=== PATIENT | male | born 1955 | race Caucasian/White ===

== ENCOUNTER 2021-12-26 15:16 | Emergency (ER) | payer MEDICARE, SELFPAY ==
--- NOTE | 2021-12-26 15:17 | ED.SKABFB ---
HPI - Skin/Abscess/Foreign Bdy General Chief complaint: Skin/Abscess/Foreign Body Stated complaint: Skin Sore Time Seen by Provider: 12/26/21 15:18 Source: patient and RN notes reviewed History of Present Illness HPI narrative: Patient is 66-year-old male who presents the urgent care with complaints of possible abscesses to the back. Patient states he noticed him over the last week or so and has been cleaning them with alcohol. Denies of any fever, chills, nausea or vomiting. No other acute complaints. No acute distress noted. Patient read the plan of care. Some parts of this dictation were generated by voice recognition software and may contain typographical and/or grammatical inaccuracies. Related Data Allergies Allergy/AdvReac Type Severity Reaction Status Date / Time No Known Allergies Allergy Verified 12/26/21 15:33 Review of Systems Review of Systems: CONSTITUTIONAL: Denies fever, chills, or sweats. EYES: Denies visual changes, redness, or discharge. ENT: Denies rhinorrhea, congestion, sore throat, or otalgia. CARDIOVASCULAR: Denies chest pain, palpitations, or edema. RESPIRATORY: Denies cough or dyspnea. GASTROINTESTINAL: Denies abdominal pain, nausea, vomiting, or diarrhea. GENITOURINARY: Denies dysuria or hematuria. SKIN: Reports of possible abscesses to the lower back MUSCULOSKELETAL: Denies back pain, joint pain, or myalgia. NEUROLOGIC: Denies headache, numbness, or weakness. All other systems reviewed are negative, except as documented in HPI. PMFSH Comments At the time of my signature, I reviewed and agree with the nursing past medical, surgical, social, and family history. There is no relevant family history pertinent to the patient complaint. Exam Narrative: GENERAL: This is a well-nourished, well-developed patient, in no apparent distress. HEAD: normocephalic, atraumatic. EYES: PERRL. Sclera clear/white. Vision is grossly intact. EARS: External ears normal NOSE: External nose normal with no obvious nasal discharge, nares without redness, no rhinorrhea. THROAT: Mucous membranes moist NECK: Neck supple SKIN: Raised erythemic subcutaneous cyst (2) to the right lower back with surrounding erythema measuring approximately 2 cm. Raised nonerythemic subcutaneous cyst to the right lower back (2) blackened scabbed center, nontender because afternoon, 3 - centimeter firm subcutaneous cyst. NEURO: awake, alert, and oriented to person, place and time. There were no obvious focal neurologic abnormalities. EXTREMITIES: No clubbing, cyanosis, or edema. Course Course Level of Care: Express Care Visit Vital Signs Vital signs: Vital Signs Temperature 97.6 F 12/26/21 15:24 Pulse Rate 106 H 12/26/21 15:24 Respiratory Rate 20 12/26/21 15:24 Blood Pressure 131/95 H 12/26/21 15:24 Pulse Oximetry 98 12/26/21 15:24 Temperature 97.6 F 12/26/21 15:24 Pulse Rate 106 H 12/26/21 15:24 Respiratory Rate 20 12/26/21 15:24 Blood Pressure 131/95 H 12/26/21 15:24 Pulse Oximetry 98 12/26/21 15:24 Reviewed-patient is informed that they may have pre-hypertension or hypertension based on a blood pressure reading in the department. I recommend the patient call the primary care provider listed on their discharge instructions or a physician of their choice this week to arrange follow-up for further evaluation of possible pre-hypertension or hypertension. MDM - Skin/Abscess/Foreign Bdy MDM Narrative Medical decision making narrative: Advised the patient to complete the oral antibiotic regimen. The areas are likely subcutaneous cyst and may not fully resolve. If you have a recurrent redness, tenderness or pain to the areas?you will need to follow-up with a assistant manager retail for removal. Do not pick at the scabs off the cyst. May use a warm compress. Do not try to pop the areas . May use Tylenol or ibuprofen as needed. Follow-up with your PCP within 2 to 5 days or for worsening symptoms or failure to improve.
[2021-12-26 15:24] VITALS: BP 131/95; PULSE 106; RESP 20; TEMP 36.4; O2SAT 98
== END 2021-12-26 16:05 | disposition home or self-care (01) ==
PROVIDERS: Emergency Provider Nurse Practitioner Family
DX: L72.9 Follicular cyst of the skin and subcutaneous tissue, unspecified (principal)
CPT/HCPCS: 99203; G0463